=== PATIENT | female | born 1965 | race Hispanic/Latino ===

== ENCOUNTER 2023-10-30 22:33 | Inpatient (IN) | payer OTHER ==
[~2023-10-30] VITALS: Ht 165.1 cm; Wt 62.6 kg
[2023-10-30 22:34] VITALS: BP 119/67; PULSE 92; RESP 20; TEMP 100.2; O2SAT 97
[2023-10-30] MEDS ORDERED: KETOROLAC TROMETHAMINE 30 MG/ML VIAL IV PRN (23:30)
[2023-10-31] VITALS (12 sets, daily range): BP systolic 107–130; BP diastolic 64–80; PULSE 57–92; RESP 18–20; TEMP 97.7–100.2; O2SAT 97–100
[2023-10-31] MEDS: SODIUM CHLORIDE 0.9% 250ML 250 ML IV ONE (00:07)
[2023-10-31] MEDS: CEFTRIAXONE 1 GM VIAL IM ONE (00:07)
[2023-10-31 01:18] LABS: BASOPHILS % 0.2 % (0.0-1.0); EOSINOPHILS # (AUTO) 0.1 (0.0-0.4); EOSINOPHILS % 1.4 % (0.0-6.0); LYMPHOCYTES # (AUTO) 1.7 (1.0-3.2); LYMPHOCYTES % 29.4 % (18.0-39.1); MEAN CORPUSCULAR HGB CONC 25.6 g/dL (31-35); MEAN CORPUSCULAR VOLUME 58.7 fL (81-99); MONOCYTES # (AUTO) 0.9 (0.2-0.8); MONOCYTES % 15.6 % (4.4-11.3); NEUTROPHILS # (AUTO) 3.1 (2.1-6.9); NEUTROPHILS % 53.2 % (38.7-80.0); PLATELET COUNT 350 x10e3/uL (140-360); RED CELL DISTRIBUTION WIDTH 21.9 % (11.7-14.4); WHITE BLOOD COUNT 5.78 x10e3/uL (4.8-10.8)
[2023-10-31 01:28] LABS: HEMOGLOBIN 5.7 g/dL (12.0-16.0)
[2023-10-31 01:29] LABS: ALBUMIN 2.9 g/dL (3.5-5.0); ALBUMIN/GLOBULIN RATIO 0.9 (0.8-2.0); BILIRUBIN,TOTAL 0.5 mg/dL (0.2-1.2); CALCIUM 8.6 mg/dL (8.4-10.2); CREATININE, SERUM 0.63 mg/dL (0.57-1.11); HEMATOCRIT 22.3 % (34.2-44.1)
[2023-10-31 01:47] LABS: ANION GAP 13.3 mmol/L (8-16); POTASSIUM 3.3 mmol/L (3.5-5.1)
[2023-10-31 01:49] LABS: FERRITIN 2.88 ng/mL (4.63-204.00)
[2023-10-31] MEDS ORDERED: ENALAPRIL MALE2.5 MG PO (01:49)
[2023-10-31] MEDS ORDERED: OMEPRAZOLE40 MG PO (01:49)
[2023-10-31] MEDS ORDERED: HYDROXYCHLOROQ200 MG PO (01:49)
[2023-10-31] MEDS ORDERED: PREDNISONE2.5 MG PO (01:49)
[2023-10-31] MEDS ORDERED: URSODIOL500 MG PO (01:49)
[2023-10-31] MEDS ORDERED: AMLODIPINE BES2.5 MG PO (01:49)
[2023-10-31] MEDS ORDERED: NAPROXEN500 MG PO (01:49)
[2023-10-31] MEDS: SODIUM CHLORIDE 0.9% 250ML 250 ML ONE ×2 (02:57→09:48)
[2023-10-31] MEDS: ACETAMINOPHEN 325 MG TAB PO PRN (04:10)
[2023-10-31] MEDS: METRONIDAZOLE 500MG/NS 100ML 100 ML IV SCH (06:40)
[2023-10-31] MEDS: CIPROFLOXACIN 400 MG/D5W 200ML 200 ML IV SCH (08:00)
[2023-10-31] MEDS ORDERED: IOPAMIDOL 370 MG/ML 100 ML INFUS..BTL INJ ONE (08:06)
[2023-10-31] MEDS: IRON SUCROSE 100 MG in SODIUM CHLORIDE 0.9% 100 ML IV SCH (09:00)
[2023-10-31 10:11] LABS: CLARITY,URINE CLEAR (CLEAR); COLOR,URINE YELLOW (YELLOW); PH,URINE 6.5 (5 - 7)
[2023-10-31 10:12] LABS: BACTERIA,URINE FEW /HPF; BILIRUBIN,URINE NEGATIVE (NEGATIVE); EPITHELIAL CELLS,URINE FEW /LPF; GLUCOSE, URINE NEGATIVE (NEGATIVE); KETONES,URINE NEGATIVE (NEGATIVE); LEUKOCYTE ESTERASE ,URINE TRACE (NEGATIVE); NITRITE,URINE NEGATIVE (NEGATIVE); PROTEIN,URINE DIPSTICK NEGATIVE (NEGATIVE); URINE UROBILINOGEN 0.2 mg/dL (0.2 - 1)
[2023-10-31] MEDS: BISACODYL 5 MG TAB EC PO ONE ×3 (14:15→17:08)
[2023-10-31 15:30] LABS: HEMATOCRIT 29.1 % (34.2-44.1); HEMOGLOBIN 8.4 g/dL (12.0-16.0)
[2023-10-31] MEDS: CITRATE OF MAGNESIA 300ML BOTTLE PO ONE (18:14)
[2023-10-31] MEDS: ONDANSETRON HCL INJ 2MG/ML 2ML 2 MG/ML VIAL IV PRN (19:15)
[2023-10-31] MEDS ORDERED: IRON SUCROSE 100 MG in SODIUM CHLORIDE 0.9% 100 ML IV SCH (20:00)
[2023-10-31] MEDS: SODIUM FERRIC GLUCONATE COMPLX 125 MG in SODIUM CHLORIDE 0.9% 100 ML IV SCH (20:00)
[2023-10-31] MEDS ORDERED: SODIUM CHLORIDE 0.9% 100 ML ONE (22:25)
[2023-11-01] VITALS (7 sets, daily range): BP systolic 104–131; BP diastolic 62–75; PULSE 61–78; RESP 16–18; TEMP 97.5–98.6; O2SAT 98–100
[2023-11-01 06:12] LABS: BASOPHILS % 0.3 % (0.0-1.0); EOSINOPHILS # (AUTO) 0.1 (0.0-0.4); HEMATOCRIT 30.2 % (34.2-44.1); HEMOGLOBIN 8.6 g/dL (12.0-16.0); LYMPHOCYTES # (AUTO) 2.1 (1.0-3.2); LYMPHOCYTES % 32.1 % (18.0-39.1); MEAN CORPUSCULAR HEMOGLOBIN 18.6 pg (28-32); MEAN CORPUSCULAR HGB CONC 28.5 g/dL (31-35); MEAN CORPUSCULAR VOLUME 65.4 fL (81-99); MONOCYTES # (AUTO) 0.8 (0.2-0.8); MONOCYTES % 12.1 % (4.4-11.3); NEUTROPHILS # (AUTO) 3.4 (2.1-6.9); NEUTROPHILS % 53.2 % (38.7-80.0); PLATELET COUNT 338 x10e3/uL (140-360); RED BLOOD COUNT 4.62 x10e6/uL (3.6-5.1); RED CELL DISTRIBUTION WIDTH 28.7 % (11.7-14.4); WHITE BLOOD COUNT 6.45 x10e3/uL (4.8-10.8)
[2023-11-01] MEDS: CITRATE OF MAGNESIA 300ML BOTTLE PO ONE (06:34)
[2023-11-01 06:51] LABS: ALBUMIN 2.9 g/dL (3.5-5.0); ALBUMIN/GLOBULIN RATIO 0.9 (0.8-2.0); ANION GAP 7.1 mmol/L (8-16); BILIRUBIN,TOTAL 0.5 mg/dL (0.2-1.2); CREATININE, SERUM 0.63 mg/dL (0.57-1.11)
[2023-11-01 06:57] LABS: POTASSIUM 3.1 mmol/L (3.5-5.1)
[2023-11-01 07:26] LABS: CALCIUM 10.7 mg/dL (8.4-10.2)
[2023-11-01] MEDS: SODIUM FERRIC GLUCONATE COMPLX 125 MG in SODIUM CHLORIDE 0.9% 100 ML IV SCH (10:55)
[2023-11-01] MEDS ORDERED: METOCLOPRAMIDE HCL 10 MG/2ML VIAL ONE (12:27)
[2023-11-01] MEDS ORDERED: LIDOCAINE HCL 2% LOCAL INJ 5 ML SDV VIAL INJ ONE (12:27)
[2023-11-01] MEDS ORDERED: HYOSCYAMINE SULFATE 0.5 MG/ML INJ ONE (12:27)
[2023-11-01] MEDS ORDERED: PROPOFOL IV EMULSION 10 MG/ML 20 ML VIAL ONE (12:27)
[2023-11-01 12:32] LABS: ANISOCYTOSIS SLIGHT; POLYCHROMASIA FEW; RBC MORPHOLOGY COMMENT NORMAL
[2023-11-01 12:33] LABS: HYPOCHROMASIA SLIG; PLATELET ESTIMATE ADEQUATE; PLATELET MORPHOLOGY COMMENT FEW LARGE
[2023-11-01] MEDS ORDERED: FENTANYL CITRATE/PF 100MCG/2 ML INJ ONE (17:39)
[2023-11-01] MEDS: POTASSIUM CHLORIDE 20MEQ/100ML 100 ML IV ONE (17:40)
[2023-11-02] VITALS: BP 125/72; PULSE 62; RESP 18; TEMP 98.5; O2SAT 100
[2023-11-02 04:00] VITALS: BP 106/67; PULSE 64; RESP 18; TEMP 98.2; O2SAT 100
[2023-11-02 06:03] LABS: BASOPHILS % 0.4 % (0.0-1.0); EOSINOPHILS # (AUTO) 0.1 (0.0-0.4); EOSINOPHILS % 1.5 % (0.0-6.0); HEMATOCRIT 28.4 % (34.2-44.1); HEMOGLOBIN 8.1 g/dL (12.0-16.0); LYMPHOCYTES # (AUTO) 2.5 (1.0-3.2); LYMPHOCYTES % 36.2 % (18.0-39.1); MEAN CORPUSCULAR HEMOGLOBIN 18.6 pg (28-32); MEAN CORPUSCULAR HGB CONC 28.5 g/dL (31-35); MEAN CORPUSCULAR VOLUME 65.1 fL (81-99); MONOCYTES # (AUTO) 0.8 (0.2-0.8); MONOCYTES % 11.5 % (4.4-11.3); NEUTROPHILS # (AUTO) 3.4 (2.1-6.9); PLATELET COUNT 361 x10e3/uL (140-360); RED BLOOD COUNT 4.36 x10e6/uL (3.6-5.1); RED CELL DISTRIBUTION WIDTH 29.4 % (11.7-14.4); WHITE BLOOD COUNT 6.79 x10e3/uL (4.8-10.8)
[2023-11-02 06:38] LABS: CALCIUM 8.8 mg/dL (8.4-10.2); CREATININE, SERUM 0.6 mg/dL (0.57-1.11)
[2023-11-02] MEDS: SODIUM CHLORIDE 0.9% 250ML 250 ML ONE (07:41)
[2023-11-02 07:59] VITALS: BP 105/58; PULSE 63; RESP 18; TEMP 98.1; O2SAT 98
[2023-11-02] MEDS ORDERED: DICYCLOMINE HCL20 MG PO (09:55)
[2023-11-02] MEDS ORDERED: PANTOPRAZOLE SO40 MG PO (09:55)
[2023-11-02] MEDS ORDERED: CIPRO500 MG PO (10:02)
[2023-11-02] MEDS ORDERED: METRONIDAZOLE500 MG PO (10:02)
[2023-11-02] MEDS: POTASSIUM CHLORIDE 20 MEQ TAB CR PO STA (10:30)
[2023-11-02 10:37] VITALS: BP 105/58; PULSE 63; RESP 18; TEMP 98.1; O2SAT 98
[2023-11-02 11:29] VITALS: BP 108/63; PULSE 60; RESP 18; TEMP 98.2; O2SAT 100
[2023-11-02 12:42] LABS: HYPOCHROMASIA SLIGHT; PLATELET ESTIMATE ADEQUATE; PLATELET MORPHOLOGY COMMENT NORMAL; RBC MORPHOLOGY COMMENT NORMAL
[2023-11-02 12:43] LABS: ANISOCYTOSIS SLIG; MICROCYTOSIS SLIG; POIKILOCYTOSIS SLIGHT
[2023-11-02 15:39] VITALS: BP 122/74; PULSE 61; RESP 18; TEMP 97.9; O2SAT 100
[2023-11-02] MEDS: DICYCLOMINE HCL 20 MG TAB PO SCH (15:57)
[2023-11-02] MEDS ORDERED: LOPERAMIDE2 MG PO (15:57)
== END 2023-11-02 17:46 | disposition home or self-care (01) | DRG 812 ==
LOC: MED/SURG2 22:36
PROVIDERS: ADMIT Internal Medicine; ATTEND Internal Medicine
PROC: 30233N1 Transfusion of Nonautologous Red Blood Cells into Peripheral Vein, Percutaneous Approach (ICD-10-PCS; principal; 2023-10-31)
PROC: 0DB68ZZ Excision of Stomach, Via Natural or Artificial Opening Endoscopic (ICD-10-PCS; 2023-11-01)
PROC: 0DBM8ZX Excision of Descending Colon, Via Natural or Artificial Opening Endoscopic, Diagnostic (ICD-10-PCS; 2023-11-01)
PROC: 0DBN8ZX Excision of Sigmoid Colon, Via Natural or Artificial Opening Endoscopic, Diagnostic (ICD-10-PCS; 2023-11-01)
PROC: 0DBP8ZX Excision of Rectum, Via Natural or Artificial Opening Endoscopic, Diagnostic (ICD-10-PCS; 2023-11-01)
PROC: 0DBB8ZX Excision of Ileum, Via Natural or Artificial Opening Endoscopic, Diagnostic (ICD-10-PCS; 2023-11-01)
PROC: 0DB98ZX Excision of Duodenum, Via Natural or Artificial Opening Endoscopic, Diagnostic (ICD-10-PCS; 2023-11-01 13:28)
PROC: 0DB78ZX Excision of Stomach, Pylorus, Via Natural or Artificial Opening Endoscopic, Diagnostic (ICD-10-PCS; 2023-11-01 13:28)
DX: D50.9 Iron deficiency anemia, unspecified (principal); K56.7 Ileus, unspecified; K52.9 Noninfective gastroenteritis and colitis, unspecified; K29.50 Unspecified chronic gastritis without bleeding; K21.00 Gastro-esophageal reflux disease with esophagitis, without bleeding; K44.9 Diaphragmatic hernia without obstruction or gangrene; K31.7 Polyp of stomach and duodenum; K62.89 Other specified diseases of anus and rectum; K57.30 Diverticulosis of large intestine without perforation or abscess without bleeding; E86.0 Dehydration; E87.6 Hypokalemia; R00.0 Tachycardia, unspecified; R31.29 Other microscopic hematuria; K75.4 Autoimmune hepatitis; M34.9 Systemic sclerosis, unspecified; Z11.52 Encounter for screening for COVID-19; Z71.81 Spiritual or religious counseling; Z79.899 Other long term (current) drug therapy; Z79.52 Long term (current) use of systemic steroids
CPT/HCPCS: 36415; 43239; 45378; 45380; 71045; 74177; 80048; 80053; 81001; 82607; 82728; 82746; 83540; 83630; 83735; 83993; 84466; 85014; 85018; 85025; 85651; 86140; 86850; 86900; 86920; 87045; 87177; 87324; 87328; 87449; 88305; 88312; 88342; 94799; J0696; J1980; J2001; J2405; J2470; J2765; J2916; J3480; J7050; P9016; Q9967; U0002